=== PATIENT | male | born 1970 | race Two or more races ===

== ENCOUNTER 2018-03-16 10:13 | Outpatient (CLI) | payer OTHER ==
[~2018-03-16 10:13] MED LIST: AMOX TR-K CLV 21 TAB PO; ATACAND4 MG PO; AVALIDE 300-12.1 TAB; PROPANOL; [UNRECOGNIZED DRUG - OTHER]
[2018-03-16] MEDS ORDERED: VALSARTAN-HCTZ1 EAC3 PO (11:02)
[2018-03-16] MEDS ORDERED: ATORVASTATIN CA20 MG PO (11:02)
[2018-03-16] MEDS ORDERED: DOXAZOSIN MESYLA4 MG PO (11:02)
[2018-03-16] MEDS ORDERED: ASPIR-TRIN325 MG PO (11:03)
[2018-03-16] MEDS ORDERED: AMODIPINE PO (11:04)
== END 2018-03-16 12:27 | disposition home or self-care (01) ==
LOC: TOM 10:13
DX: R31.9 Hematuria, unspecified (principal); K57.30 Diverticulosis of large intestine without perforation or abscess without bleeding

== ENCOUNTER 2018-03-21 10:00 | Day surgery (SDC) | payer OTHER ==
[~2018-03-21] VITALS: Ht 180.3 cm; Wt 163.3 kg
[~2018-03-21 10:00] MED LIST changes: +AMODIPINE PO; +ASPIR-TRIN325 MG PO; +ATORVASTATIN CA20 MG PO; +DOXAZOSIN MESYLA4 MG PO; +NORVASC10 MG PO; +VALSARTAN-HCTZ1 EAC3 PO
== END 2018-03-21 12:00 | disposition home or self-care (01) ==
LOC: SURH → CIR.AMB 10:00 → SURH 11:36 → CIR.AMB 12:00
DX: N30.81 Other cystitis with hematuria (principal)

== ENCOUNTER 2022-06-09 17:21 | Emergency (ER) | payer OTHER ==
[~2022-06-09] VITALS: Ht 180.3 cm; Wt 165.1 kg
[2022-06-09] MEDS ORDERED: MEMANTINE HCL10 MG PO (17:45)
[2022-06-09] MEDS ORDERED: TELMISARTAN40 MG PO (17:46)
== END 2022-06-09 22:45 | disposition home or self-care (01) ==
LOC: ER 17:21
DX: S39.92XA Unspecified injury of lower back, initial encounter (principal); W01.0XXA Fall on same level from slipping, tripping and stumbling without subsequent striking against object, initial encounter; Y93.9 Activity, unspecified; Y92.019 Unspecified place in single-family (private) house as the place of occurrence of the external cause; E78.00 Pure hypercholesterolemia, unspecified; I10 Essential (primary) hypertension; E11.9 Type 2 diabetes mellitus without complications; M54.50 Low back pain, unspecified